=== PATIENT | female | born 1945 | race Caucasian/White ===

== ENCOUNTER 2021-07-22 18:07 | Emergency (ER) | payer MEDICARE, OTHER ==
[~2021-07-22] VITALS: Ht 157.5 cm; Wt 50.0 kg
[2021-07-22] MEDS ORDERED: HYDROcodone/acetaminophen 5mg/325mg tablet PO ONE (19:20)
[2021-07-22] MEDS ORDERED: ondansetron 4mg rapidly disintigrating tab PO ONE (19:20)
[2021-07-22] MEDS ORDERED: ONDA4TAB6 PO (22:11)
[2021-07-22] MEDS ORDERED: HYDR-3965 PO (22:11)
[2021-07-22 22:28] VITALS: BP 148/80
== END 2021-07-22 22:30 | disposition home or self-care (01) ==
LOC: ER 18:07
DX: S42.215A Unspecified nondisplaced fracture of surgical neck of left humerus, initial encounter for closed fracture (principal); Z79.899 Other long term (current) drug therapy; W18.30XA Fall on same level, unspecified, initial encounter; Z91.81 History of falling; Y93.89 Activity, other specified; Y92.099 Unspecified place in other non-institutional residence as the place of occurrence of the external cause; Y99.8 Other external cause status
CPT/HCPCS: 29105; 73030; 99284

== ENCOUNTER 2021-09-03 10:39 | Inpatient (IN) | payer MEDICARE, OTHER ==
[~2021-09-03] VITALS: Ht 158.8 cm; Wt 49.0 kg
[2021-09-03] VITALS (16 sets, daily range): BP systolic 122–158; BP diastolic 58–88
[~2021-09-03 10:39] MED LIST: CELE200C PO; DENO60DI SUBCUT; FLUT16SP13 BOTHNARES; HYDR-3972 PO; ONDA4TAB6 PO; PROM25TA14 PO; QUET50TA24 PO; ROSU5TAB PO; VANCOMYCIN INJ 1000 MG in NORMAL SALINE 250ml IV.SOLN IV ONE; XAL0.005OS OP; cefazolin/dext.iso 2gm/50ml IV ONE; famotidine 20mg tablet PO ONE; ringers solution, lacted 1,000 ML IV SCH
[2021-09-03 12:12] LABS: BASOPHILS % (AUTO) 0.4 % (0-1); EOSINOPHILS # (AUTO) 0.3 X10'3 (0-0.9); EOSINOPHILS % (AUTO) 3.9 % (0-6); LYMPHOCYTES # (AUTO) 1.4 X10'3 (1.1-4.8); MEAN CORPUSCULAR HEMOGLOBIN 30.5 PG (27.0-31.0); MEAN CORPUSCULAR HGB CONC 33.6 g/dL (33.0-36.5); MEAN CORPUSCULAR VOLUME 90.8 FL (78-98); MEAN PLATELET VOLUME 6.7 FL (7.4-10.4); MONOCYTES # (AUTO) 0.5 X10'3 (0-0.9); NEUTROPHILS % (AUTO) 68.7 % (42-75); PRE OP HEMOGLOBIN 11.8 g/dL (12.0-16.0); PRE OP PLATELET COUNT 338 X10'3 (140-440); RED BLOOD COUNT 3.85 X10'6 (4.20-5.60); RED CELL DISTRIBUTION WIDTH 15.9 % (11.5-14.5)
[2021-09-03 12:22] LABS: ALBUMIN/GLOBULIN RATIO 1.4 (1.1-1.5); ALKALINE PHOSPHATASE 60 IU/L (46-116); BLOOD UREA NITROGEN 9 MG/DL (7-18); CALCIUM 8.5 MG/DL (8.5-10.1); CHLORIDE 105 MMOL/L (99-107); CREATININE 0.75 MG/DL (0.40-0.90); PRE OP ALT 16 U/L (30-65); PRE OP ANION GAP 12 (8-16); PRE OP AST 13 U/L (10-37); PRE OP BILIRUB, TOTAL 0.3 MG/DL (0.0-1.0); PRE OP GLUCOSE 92 MG/DL (70-104); PRE OP POTASSIUM 3.8 MMOL/L (3.4-5.1); PRE OP SODIUM 141 MMOL/L (135-145); TOTAL CARBON DIOXIDE 23.8 MMOL/L (24-32); TOTAL PROTEIN 6.8 G/DL (6.4-8.2); eGFR 75 ML/MIN
[2021-09-03] MEDS ORDERED: tranexamic acid 650mg tablet PO ONE (12:25)
[2021-09-03] MEDS ORDERED: ROPIVAcaine 0.5% (5mg/ml) 30ml vial ONE ×2 (12:50→15:00)
[2021-09-03] MEDS ORDERED: ketorolac trometh. 30mg/ml inj. ONE (12:50)
[2021-09-03] MEDS ORDERED: fentaNYL/PF 50MCG/1 ML 2ML syringe ONE ×2 (13:18→15:42)
[2021-09-03] MEDS ORDERED: midazolam 1 mg/ML 2ml injection ONE (13:18)
[2021-09-03] MEDS ORDERED: sevoflurane 250ml liquid IH ONE (13:52)
[2021-09-03] MEDS ORDERED: ROPIVAcaine 0.2% (10 MG/5 ML) BOLUS INJECTION INTERSCALE PRN (14:55)
[2021-09-03] MEDS ORDERED: HYDROmorphone/PF 0.2 MG/ML SYRINGE IV PRN (14:55)
[2021-09-03] MEDS ORDERED: ringers solution, lacted 1,000 ML IV SCH (14:55)
[2021-09-03] MEDS ORDERED: morphine 2 MG/ML inj. syringe IV PRN (14:55)
[2021-09-03] MEDS ORDERED: ROPIVAcaine 0.2%/PF PUMP/bolus 545 ML INTERSCALE SCH (14:55)
[2021-09-03] MEDS ORDERED: ondansetron/PF 4mg/2ml inj IV PRN ×2 (14:55→17:10)
[2021-09-03] MEDS ORDERED: propofol inj 20 ML IV ONE (15:00)
[2021-09-03] MEDS ORDERED: ondansetron/PF 4mg/2ml inj ONE (15:00)
[2021-09-03] MEDS ORDERED: dexamethasone sod phosphate 4mg/ml inj. ONE (15:00)
[2021-09-03] MEDS ORDERED: acetaminophen 1,000mg/100ml IV 100 ML IV ONE (15:00)
[2021-09-03] MEDS ORDERED: LIDOcaine 1%/PF 5ML 10 MG/ML VIAL ONE (15:00)
--- NOTE | 2021-09-03 15:50 | NUR ---
Received from OR via BED, accompanied by Anesthesiologist DR LOPEZ and report given by Anesthesiologist AND TRIBAL JUDGE. PT DROWSY, DENIES PAIN, PT W/SHIVERS, BLANKET WARMER APPLIED. LEFT LORI W/SUYAPA WRAP, ICE PACK, SLING, CDI. Addendum: 09/03/21 at 1628 by Lorie Vincent RN Amended: Links added.
[2021-09-03] MEDS ORDERED: oxyCODONE IR 5mg (immed. release) tablet PO PRN ×2 (17:10)
[2021-09-03] MEDS ORDERED: bisacodyl 10mg suppository rectal RC PRN (17:10)
[2021-09-03] MEDS ORDERED: HYDROmorphone inj. 0.5 MG/0.5 ML DISP.SYRIN IV PRN (17:10)
[2021-09-03] MEDS ORDERED: HYDROcodone/acetaminophen 10/325mg tab PO PRN (17:10)
[2021-09-03] MEDS ORDERED: diphenhydrAMINE 25mg capsule PO PRN ×2 (17:10)
[2021-09-03] MEDS ORDERED: acetaminophen 325mg tablet PO PRN (17:10)
[2021-09-03] MEDS ORDERED: HYDROmorphone 1 mg/ml syringe IV PRN (17:10)
[2021-09-03] MEDS ORDERED: magnesium hydroxide 30ml (MOM) UD suspension PO PRN (17:10)
[2021-09-03] MEDS ORDERED: potassium cl 20mEq in 1/2 NS 1,000 ML IV SCH (17:10)
[2021-09-03] MEDS ORDERED: non-formulary drug (Celecoxib (Celebrex) 1 CAP) PO PRN (17:10)
--- NOTE | 2021-09-03 18:20 | NUR ---
PT UP AND ABLE TO AMBULATE SAFELY, D/C INSTRUCTIONS GONE OVER AND GIVEN COPIES TO PT AND PTS DAUGHTER WHO BOTH VERBALIZED UNDERSTANDING, INCLUDING ON-QUE PAIN BALL W/WRITTEN INSTRUCTIONS AND DRSG CHANGE INSTRUCTIONS WELL ALL D/C INSTRUCTIONS. PT D/CD TO HOME VIA W/C TO PRIVATE VEHICLE W/O INCIDENT. Addendum: 09/03/21 at 1923 by Lorie Vincent RN Amended: Links added.
[2021-09-03] MEDS ORDERED: acetaminophen 325mg tablet PO SCH (20:00)
[2021-09-03] MEDS ORDERED: non-formulary drug (Ondansetron Hcl (Zofran) 1 TAB) PO SCH (20:00)
[2021-09-03] MEDS ORDERED: non-formulary drug (Quetiapine Fumarate 1 TAB) PO SCH (21:00)
[2021-09-03] MEDS ORDERED: sennosides 8.6mg tablet PO SCH (21:00)
[2021-09-04] MEDS ORDERED: ceFAZolin/D5W- 1GM premix 50 ML IV SCH
[2021-09-04] MEDS ORDERED: FLUTICASONE PROPIONATE BOTHNARES SCH (08:00)
[2021-09-04] MEDS ORDERED: aspirin 325mg tablet PO SCH (08:30)
[2021-09-04] MEDS ORDERED: celeCOXIB 100mg capsule PO SCH (20:00)
[2021-09-05] MEDS ORDERED: acetaminophen 325mg tablet PO PRN (17:10)
== END 2021-09-03 18:20 | disposition home or self-care (01) | DRG 483 ==
LOC: PAS IN 10:39
PROVIDERS: ADMIT Orthopaedic Surgery; ATTEND Orthopaedic Surgery
PROC: 3E0T3BZ Introduction of Anesthetic Agent into Peripheral Nerves and Plexi, Percutaneous Approach (ICD-10-PCS; 2021-09-03)
PROC: 3E0T33Z Introduction of Anti-inflammatory into Peripheral Nerves and Plexi, Percutaneous Approach (ICD-10-PCS; 2021-09-03)
PROC: 0RRK00Z Replacement of Left Shoulder Joint with Reverse Ball and Socket Synthetic Substitute, Open Approach (ICD-10-PCS; principal; 2021-09-03 13:52)
DX: S42.292A Other displaced fracture of upper end of left humerus, initial encounter for closed fracture (principal); M81.0 Age-related osteoporosis without current pathological fracture; M79.7 Fibromyalgia; W18.39XA Other fall on same level, initial encounter; Y93.89 Activity, other specified; Y92.89 Other specified places as the place of occurrence of the external cause; Y99.8 Other external cause status
CPT/HCPCS: 36415; 73030; 76000; 80053; 85025; 87081; 87635; 93005; A4565; A4618; A7000; C1776; J0131; J0690; J1100; J1885; J2250; J2405; J2704; J2795; J3010; J3370; J3490; J7120

== ENCOUNTER 2022-03-26 12:06 | Inpatient (IN) | payer MEDICARE, OTHER ==
[~2022-03-26] VITALS: Ht 154.9 cm; Wt 45.5 kg
[~2022-03-26 12:06] MED LIST changes: -VANCOMYCIN INJ 1000 MG in NORMAL SALINE 250ml IV.SOLN IV ONE; -cefazolin/dext.iso 2gm/50ml IV ONE; -famotidine 20mg tablet PO ONE; -ringers solution, lacted 1,000 ML IV SCH
[2022-03-26] MEDS ORDERED: normal saline 1000ML IV soln IVB ONE ×2 (12:20→12:45)
[2022-03-26 12:42] LABS: BASOPHILS % (AUTO) 0.5 % (0-1); EOSINOPHILS # (AUTO) 0.1 X10'3 (0-0.9); EOSINOPHILS % (AUTO) 1.7 % (0-6); HEMATOCRIT 36.5 % (35.0-45.0); HEMOGLOBIN 12.4 g/dl (12.0-16.0); LYMPHOCYTES # (AUTO) 1.7 X10'3 (1.1-4.8); LYMPHOCYTES % (AUTO) 27.1 % (21-51); MEAN CORPUSCULAR HEMOGLOBIN 29.6 PG (27.0-31.0); MEAN CORPUSCULAR VOLUME 87.3 FL (78-98); MEAN PLATELET VOLUME 6.8 FL (7.4-10.4); MONOCYTES # (AUTO) 0.5 X10'3 (0-0.9); MONOCYTES % (AUTO) 7.7 % (2-12); NEUTROPHILS # (AUTO) 3.9 X10'3 (1.8-7.7); PLATELET COUNT 356 X10'3 (140-440); RED BLOOD COUNT 4.18 X10'6 (4.20-5.60); WHITE BLOOD COUNT 6.2 X10'3 (4.5-11.0)
[2022-03-26 12:59] LABS: ALANINE AMINOTRANSFERASE 21 U/L (12-78); ALBUMIN 4.3 G/DL (3.4-5.0); ALBUMIN/GLOBULIN RATIO 1.4 (1.1-1.5); ALKALINE PHOSPHATASE 60 IU/L (46-116); ANION GAP 10 (8-16); ASPARTATE AMINO TRANSFERASE 18 U/L (10-37); BILIRUBIN,TOTAL 0.2 MG/DL (0.1-1.0); BLOOD UREA NITROGEN 8 MG/DL (7-18); BUN/CREATININE RATIO 9.5 (6.6-38.0); CALCIUM 9.1 MG/DL (8.5-10.1); CHLORIDE 98 MMOL/L (99-107); CREATININE 0.84 MG/DL (0.40-0.90); GLUCOSE 102 MG/DL (70-104); POTASSIUM 3.6 MMOL/L (3.5-5.1); SODIUM 131 MMOL/L (135-145); TOTAL CARBON DIOXIDE 23.2 MMOL/L (24-32); TOTAL PROTEIN 7.4 G/DL (6.4-8.2); eGFR 66 ML/MIN
[2022-03-26 13:15] LABS: ETHANOL < 0.010 GM/DL (0.0-0.010)
[2022-03-26] MEDS ORDERED: metoprolol tartrate 50mg tablet PO ONE (13:30)
[2022-03-26] MEDS ORDERED: POTASSIUM BICARB 20meq eff tab 20 MEQ TABLET.EFF PO PRN ×2 (13:40)
[2022-03-26] MEDS ORDERED: magnesium Cl slow-release 64mg tablet PO PRN (13:40)
[2022-03-26] MEDS ORDERED: morphine 2 MG/ML inj. syringe IV PRN ×2 (13:40)
[2022-03-26] MEDS ORDERED: magnesium hydroxide 30ml (MOM) UD suspension PO PRN (13:40)
[2022-03-26] MEDS ORDERED: ondansetron/PF 4mg/2ml inj IV PRN (13:40)
[2022-03-26] MEDS ORDERED: magnesium 4gm in 100ml NS 100 ML IV PRN (13:40)
[2022-03-26] MEDS ORDERED: mag hydrox/Alum hydrox/simeth 30ml oral suspension PO PRN (13:40)
[2022-03-26] MEDS ORDERED: potassium CL 10mEq/100ml bag 100 ML IV PRN (13:40)
[2022-03-26] MEDS ORDERED: magnesium 2GM in 50ml NS 50 ML IV PRN (13:40)
[2022-03-26] MEDS ORDERED: acetaminophen 325mg tablet PO PRN (13:40)
[2022-03-26] MEDS ORDERED: DULO30CA52 PO (14:45)
[2022-03-26] MEDS ORDERED: CHOL50004 PO (14:47)
[2022-03-26] MEDS ORDERED: CALC600T22 PO (14:47)
[2022-03-26] MEDS: normal saline 1000ml 1,000 ML IV SCH ×2 (14:58→19:06)
--- NOTE | 2022-03-26 15:54 | NUR ---
DIRECTOR OF MARKET RESEARCH AT BEDSIDE.
[2022-03-26 16:46] LABS: URINE AMPHETAMINE SCREEN NEGATIVE (Neg); URINE BARBITUATE SCREEN NEGATIVE (Neg); URINE BENZODIAZEPINES SCREEN NEGATIVE (Neg); URINE CANNABINOID SCREEN NEGATIVE (Neg); URINE COCAINE SCREEN NEGATIVE (Neg); URINE METHADONE SCREEN NEGATIVE (Neg); URINE OPIATE SCREEN NEGATIVE (Neg); URINE PHENCYCLIDINE SCREEN NEGATIVE (Neg)
[2022-03-26 16:47] LABS: CLARITY,URINE CLEAR (Clear); COLOR,URINE YELLOW (Yellow); GLUCOSE, URINE NEGATIVE (Neg); KETONES,URINE NEGATIVE (Neg); LEUKOCYTE ESTERASE ,URINE NEGATIVE (Neg); NITRITES, URINE NEGATIVE (Neg); OCCULT BLOOD,URINE NEGATIVE (Neg); PROTEIN,URINE NEGATIVE (Neg); UROBILINOGEN,URINE 0.2 E.U/dL (0.2-1.0)
[2022-03-26 16:48] LABS: UA COLLECTION TYPE CLN CATCH MIDSTREAM
[2022-03-26 16:49] LABS: CHOL/HDL RATIO 3.1 (0.00-4.99); CHOLESTEROL 255 MG/DL (0-200); HDL CHOLESTEROL 81 MG/DL (35-60); LDL CHOLESTEROL 148 MG/DL (50-100); MAGNESIUM 1.8 MG/DL (1.5-2.4); POTASSIUM 3.7 MMOL/L (3.5-5.1); TRIGLYCERIDES 107 MG/DL (20-135)
--- NOTE | 2022-03-26 17:30 | NUR ---
TRIED TO CALL REPORT BUT PRIMARY RN IS NOT AVAILABLE.
--- NOTE | 2022-03-26 17:33 | NUR ---
Patient in room PCU 3015. I have received report from Michi MARTINEZ and had the opportunity to ask questions and assume patient care.
--- NOTE | 2022-03-26 18:22 | NUR ---
Problems reprioritized. Patient report given, questions answered & plan of care reviewed with Jagruti RN.
[2022-03-26 18:55] VITALS: BP 158/76
[2022-03-26] MEDS: heparin, porcine 5000 units/ml vial SQ SCH (19:05)
[2022-03-26] MEDS: docusate sod 100mg capsule PO SCH (19:06)
[2022-03-26] MEDS: K and/or MAG REPLACEMENT MC SCH (19:29)
[2022-03-26] MEDS ORDERED: QUEtiapine 25mg tablet PO SCH (21:00)
[2022-03-26 22:00] VITALS: BP 118/53
[2022-03-27 02:00] VITALS: BP 144/64
[2022-03-27] MEDS: normal saline 1000ml 1,000 ML IV SCH (05:35)
[2022-03-27 06:39] LABS: BASOPHILS % (AUTO) 0.5 % (0-1); EOSINOPHILS # (AUTO) 0.1 X10'3 (0-0.9); EOSINOPHILS % (AUTO) 1.9 % (0-6); HEMATOCRIT 34.1 % (35.0-45.0); HEMOGLOBIN 11.6 g/dl (12.0-16.0); LYMPHOCYTES # (AUTO) 1.2 X10'3 (1.1-4.8); LYMPHOCYTES % (AUTO) 20.5 % (21-51); MEAN CORPUSCULAR HEMOGLOBIN 30.3 PG (27.0-31.0); MEAN CORPUSCULAR HGB CONC 34.1 g/dL (33.0-36.5); MEAN CORPUSCULAR VOLUME 88.9 FL (78-98); MEAN PLATELET VOLUME 6.9 FL (7.4-10.4); MONOCYTES # (AUTO) 0.3 X10'3 (0-0.9); MONOCYTES % (AUTO) 5.9 % (2-12); NEUTROPHILS # (AUTO) 4.1 X10'3 (1.8-7.7); NEUTROPHILS % (AUTO) 71.2 % (42-75); PLATELET COUNT 291 X10'3 (140-440); RED BLOOD COUNT 3.84 X10'6 (4.20-5.60); RED CELL DISTRIBUTION WIDTH 16.3 % (11.5-14.5); WHITE BLOOD COUNT 5.7 X10'3 (4.5-11.0)
[2022-03-27 06:51] LABS: ALBUMIN 3.5 G/DL (3.4-5.0); ANION GAP 9 (8-16); BLOOD UREA NITROGEN 5 MG/DL (7-18); BUN/CREATININE RATIO 7.4 (6.6-38.0); CALCIUM 7.8 MG/DL (8.5-10.1); CHLORIDE 109 MMOL/L (99-107); CREATININE 0.68 MG/DL (0.40-0.90); GLUCOSE 98 MG/DL (70-104); POTASSIUM 3.3 MMOL/L (3.5-5.1); SODIUM 141 MMOL/L (135-145); TOTAL CARBON DIOXIDE 23.5 MMOL/L (24-32); eGFR 84 ML/MIN
[2022-03-27] MEDS ORDERED: latanoprost 0.005% 2.5ml ophthalmic drops EACHEYE SCH (08:00)
[2022-03-27] MEDS: K and/or MAG REPLACEMENT MC SCH (08:00)
[2022-03-27] MEDS ORDERED: calcium carbonate 500mg tablet PO SCH (08:00)
[2022-03-27] MEDS: docusate sod 100mg capsule PO SCH (08:00)
[2022-03-27] MEDS ORDERED: cholecalciferol (vitamin D3) 1,000 unit (25mcg) tablet PO SCH (08:00)
[2022-03-27] MEDS ORDERED: aspirin 81mg, enteric-coated 1 TAB TABLET.DR PO SCH (08:00)
[2022-03-27] MEDS ORDERED: atorvastatin 20mg tablet PO SCH (08:00)
[2022-03-27] MEDS ORDERED: duloxetine 30mg CAPSULE.DR PO SCH (08:00)
[2022-03-27] MEDS ORDERED: fluticasone nasal spray 16GM bottle NS SCH (08:00)
[2022-03-27] MEDS: heparin, porcine 5000 units/ml vial SQ SCH (09:57)
[2022-03-27] MEDS ORDERED: ASPI-1071 PO (10:47)
--- NOTE | 2022-03-27 14:03 | NUR ---
Pt discharged home with current instructions. Escorted to Lobby via ambulatory by RN.
== END 2022-03-27 13:53 | disposition home or self-care (01) | DRG 312 ==
LOC: ER 12:07 → ED HOLD 13:42 → PCU 3S 17:59
PROVIDERS: ADMIT Family Medicine; ATTEND Family Medicine
DX: R55 Syncope and collapse (principal); E87.1 Hypo-osmolality and hyponatremia; E78.5 Hyperlipidemia, unspecified; G89.4 Chronic pain syndrome; I10 Essential (primary) hypertension; M81.0 Age-related osteoporosis without current pathological fracture; R00.0 Tachycardia, unspecified
CPT/HCPCS: 36415; 70450; 70544; 70551; 71045; 80048; 80053; 80061; 80305; 80320; 81003; 83735; 83880; 84132; 84484; 85025; 87081; 93306; 93880; 96360; 99285; G0378; J1644; J2405; J7030

== ENCOUNTER 2023-01-29 14:24 | Observation (INO) | payer BC, MEDICARE, OTHER ==
[~2023-01-29] VITALS: Ht 157.5 cm; Wt 45.5 kg
[~2023-01-29 14:24] MED LIST changes: +ASPI-1071 PO; +CALC600T22 PO; -CELE200C PO; +CHOL50004 PO; +DULO30CA52 PO; -HYDR-3972 PO; -ONDA4TAB6 PO; -PROM25TA14 PO
[2023-01-29 14:52] LABS: BASOPHILS % (AUTO) 0.1 % (0-1); EOSINOPHILS % (AUTO) 0.1 % (0-6); HEMATOCRIT 36.3 % (35.0-45.0); HEMOGLOBIN 12.1 g/dl (12.0-16.0); LYMPHOCYTES # (AUTO) 0.5 X10'3 (1.1-4.8); LYMPHOCYTES % (AUTO) 5.7 % (21-51); MEAN CORPUSCULAR HEMOGLOBIN 29.3 PG (27.0-31.0); MEAN CORPUSCULAR HGB CONC 33.3 g/dL (33.0-36.5); MEAN CORPUSCULAR VOLUME 87.8 FL (78-98); MEAN PLATELET VOLUME 6.6 FL (7.4-10.4); MONOCYTES # (AUTO) 0.4 X10'3 (0-0.9); MONOCYTES % (AUTO) 5.4 % (2-12); NEUTROPHILS # (AUTO) 7.3 X10'3 (1.8-7.7); NEUTROPHILS % (AUTO) 88.7 % (42-75); PLATELET COUNT 338 X10'3 (140-440); RED BLOOD COUNT 4.13 X10'6 (4.20-5.60); RED CELL DISTRIBUTION WIDTH 14.2 % (11.5-14.5); WHITE BLOOD COUNT 8.2 X10'3 (4.5-11.0)
[2023-01-29 15:13] LABS: ALANINE AMINOTRANSFERASE 24 U/L (12-78); ALBUMIN 3.9 G/DL (3.4-5.0); ALBUMIN/GLOBULIN RATIO 1.1 (1.1-1.5); ALKALINE PHOSPHATASE 90 IU/L (46-116); ANION GAP 13 (8-16); ASPARTATE AMINO TRANSFERASE 30 U/L (10-37); BILIRUBIN,TOTAL 0.5 MG/DL (0.1-1.0); BLOOD UREA NITROGEN 6 MG/DL (7-18); BUN/CREATININE RATIO 13.3 (10.0-20.0); CALCIUM 8.7 MG/DL (8.5-10.1); CHLORIDE 93 MMOL/L (99-107); CREATININE 0.45 MG/DL (0.40-0.90); GLUCOSE 125 MG/DL (70-104); POTASSIUM 3.3 MMOL/L (3.5-5.1); SODIUM 129 MMOL/L (135-145); TOTAL CARBON DIOXIDE 23.4 MMOL/L (24-32); TOTAL PROTEIN 7.5 G/DL (6.4-8.2); eGFR > 90 ML/MIN
[2023-01-29] MEDS ORDERED: normal saline 1000ML IV soln IVB ONE (15:20)
[2023-01-29 15:35] LABS: URINE AMPHETAMINE SCREEN NEGATIVE (Neg); URINE BARBITUATE SCREEN NEGATIVE (Neg); URINE BENZODIAZEPINES SCREEN NEGATIVE (Neg); URINE CANNABINOID SCREEN POSITIVE (Neg); URINE COCAINE SCREEN NEGATIVE (Neg); URINE METHADONE SCREEN NEGATIVE (Neg); URINE OPIATE SCREEN NEGATIVE (Neg); URINE PHENCYCLIDINE SCREEN NEGATIVE (Neg)
[2023-01-29 15:36] LABS: D-DIMER 3.08 MG/L FEU (0-0.50)
[2023-01-29 15:39] LABS: CREATINE KINASE 463 U/L (26-192)
[2023-01-29 15:50] LABS: CLARITY,URINE CLEAR (Clear); COLOR,URINE YELLOW (Yellow); GLUCOSE, URINE NEGATIVE (Neg); KETONES,URINE >=80 mg/dl (Neg); LEUKOCYTE ESTERASE ,URINE NEGATIVE (Neg); NITRITES, URINE NEGATIVE (Neg); OCCULT BLOOD,URINE NEGATIVE (Neg); PROTEIN,URINE 100 mg/dl (Neg); UROBILINOGEN,URINE 0.2 E.U/dL (0.2-1.0)
[2023-01-29 15:53] LABS: UA COLLECTION TYPE STRAIGHT CATH
[2023-01-29 15:58] LABS: BACTERIA,URINE FEW /HPF (Neg); MUCUS STRANDS FEW /LPF (Neg); RBC,URINE NONE SEEN /HPF (0-2); RENAL CELLS, URINE FEW /HPF; SQUAMOUS EPITHELIAL CELL,UR NONE SEEN /LPF (FEW); WBC,URINE 0-4 /HPF (0-4)
[2023-01-29] MEDS ORDERED: aspirin 81mg tab.chew PO ONE (16:25)
[2023-01-29] MEDS ORDERED: normal saline 1000ml 1,000 ML IV SCH (17:15)
[2023-01-29] MEDS ORDERED: ondansetron/PF 4mg/2ml inj IV PRN (17:15)
[2023-01-29] MEDS ORDERED: magnesium 2GM in 50ml NS 50 ML IV PRN (17:15)
[2023-01-29] MEDS ORDERED: PERFLUTREN PROTEIN-A MICROSPHR (Optison) 0.22 MG/ML 3ML VIAL IV ONE (17:15)
[2023-01-29] MEDS ORDERED: acetaminophen 325mg tablet PO PRN ×2 (17:15)
[2023-01-29] MEDS ORDERED: potassium Cl 20 mEq SR tablet PO PRN ×2 (17:15)
[2023-01-29] MEDS ORDERED: potassium Cl 40MEQ/1/2NS 520ml 520 ML IV PRN (17:15)
[2023-01-29] MEDS ORDERED: mag hydrox/Alum hydrox/simeth 30ml oral suspension PO PRN (17:15)
[2023-01-29] MEDS ORDERED: magnesium Cl slow-release 64mg tablet PO PRN (17:15)
[2023-01-29] MEDS ORDERED: ondansetron 4mg rapidly disintigrating tab PO PRN (17:15)
[2023-01-29] MEDS ORDERED: acetaminophen 650mg rectal suppository RC PRN (17:15)
[2023-01-29] MEDS ORDERED: metoclopramide 5 mg/ml inj IV PRN (17:15)
[2023-01-29] MEDS ORDERED: magnesium hydroxide 30ml (MOM) UD suspension PO PRN (17:15)
[2023-01-29] MEDS ORDERED: magnesium 4gm in 100ml NS 100 ML IV PRN (17:15)
--- NOTE | 2023-01-29 17:54 | NUR ---
Dr. valle at bedside.
[2023-01-29] MEDS ORDERED: TRAM50TA2 PO (17:57)
[2023-01-29 18:26] VITALS: BP 134/68
[2023-01-29] MEDS ORDERED: K and/or MAG REPLACEMENT MC SCH (20:00)
[2023-01-29] MEDS ORDERED: docusate sod 100mg capsule PO SCH (20:00)
[2023-01-29] MEDS ORDERED: temazepam 15mg capsule PO PRN (21:00)
[2023-01-30] MEDS ORDERED: aspirin 81mg tab.chew PO SCH (08:30)
== END 2023-01-29 18:14 | disposition home or self-care (01) ==
LOC: ER 14:27 → ED HOLD 17:18
PROVIDERS: ADMIT Family Medicine; ATTEND Family Medicine
DX: G92.9 Unspecified toxic encephalopathy (principal); I21.A1 Myocardial infarction type 2; E87.1 Hypo-osmolality and hyponatremia; E87.6 Hypokalemia; M62.82 Rhabdomyolysis; G89.4 Chronic pain syndrome; F12.920 Cannabis use, unspecified with intoxication, uncomplicated; F10.129 Alcohol abuse with intoxication, unspecified; Z79.82 Long term (current) use of aspirin; Z79.899 Other long term (current) drug therapy
CPT/HCPCS: 36415; 70450; 71045; 73660; 80053; 80305; 81001; 82550; 83735; 83880; 84484; 85025; 85379; 99284; G0378; J7030; A4353

== ENCOUNTER 2025-01-17 08:52 | Emergency (ER) | payer BC ==
[~2025-01-17] VITALS: Ht 157.5 cm; Wt 48.3 kg
[2025-01-17 08:54] VITALS: BP 181/107; PULSE 118; RESP 15; O2SAT 98
[2025-01-17 10:06] VITALS: TEMP 98.4
== END 2025-01-17 10:09 | disposition home or self-care (01) ==
LOC: ER 08:53
DX: M25.532 Pain in left wrist (principal); M25.512 Pain in left shoulder; Z79.82 Long term (current) use of aspirin; Z79.899 Other long term (current) drug therapy
CPT/HCPCS: 29260; 73030; 73110; 99284